=== PATIENT | female | born 1985 | race Caucasian/White ===

== ENCOUNTER 2016-07-10 18:14 | Emergency (ER) | payer SELFPAY ==
--- NOTE | ~2016-07-10 | CT2 ---
[facility] A Service of [facility] RADIOLOGY TEXT RESULTS PATIENT: RACHEL ALVAREZ LOCATION: SED : 89 UNIT #: [id number] AGE: [address]: JUAN QUINN SEX: F ORDER DR: [id number] [address] [id number] [id number] E MR#: [id number] Acc #: [id number] NAME: RACHEL ALVAREZ. : 1985 SEX: F STUDY DATE/TIME: 07/10/2016 20:18 UNIT: SED ROOM: STUDY DESCRIPTION: CT Abd and Pelv W Cont Attending Physician: Juan Quinn Ordering Physician: Physician Non-Staff Primary Care Physician: Primary Care Physician No MEDICAL IMAGING REPORT This report is preliminary unless electronic signature is present. EXAM CT scan of the abdomen and pelvis with contrast 07/10/2016 HISTORY Abdomen pain for 1 week with nausea, vomiting and diarrhea. TECHNIQUE Spiral CT was performed through the abdomen and pelvis following intravenous contrast administration only as per clinician request. This CT examination was performed with one or more of the following radiation dose reduction techniques: automatic exposure control, adjustment of mA and/or kV according to patient size, and iterative reconstruction. FINDINGS ABDOMEN: The exam is limited by the lack of oral contrast. The liver demonstrates a 5 mm hypodense lesion in the inferior right hepatic lobe with some peripheral enhancement. It may represent a small hemangioma. A similar low-density lesion measuring 8 mm is seen in the posterior right hepatic lobe. The findings could be better evaluated with either CT scan of the liver with contrast using hemangioma protocol or liver MRI with gadolinium on a non emergent basis. The spleen, pancreas, gallbladder and biliary tree, adrenal glands and kidneys are normal. PELVIS: The gut, mesenteric and dylan structures are normal. There is a 4.8 cm x 4 cm cystic lesion extending off the left ovary. This would be better evaluated with pelvic ultrasound. There is no free fluid in the pelvis. The lung bases are normal. IMPRESSION 1. Exam is limited by the lack of oral contrast. 2. Two indeterminate low-density lesions located in the right hepatic lobe. Consider characterization of these findings with either CT scan [facility] A Service of [facility] RADIOLOGY TEXT RESULTS PATIENT: RACHEL ALVAREZ LOCATION: SED : 89 UNIT #: [id number] AGE: [address]: JUAN QUINN SEX: F ORDER DR: of the liver with contrast using hemangioma protocol or liver MRI with gadolinium on a non emergent basis. 3. 4.8 cm cystic lesion in the left adnexa. Recommend correlation with transabdominal and transvaginal pelvic ultrasound for characterization of this finding. Dictated by... Jose Alejandro Alcantara M.D. THIS IS AN ELECTRONICALLY VERIFIED REPORT Jose Alejandro Alcantara M.D. at 07/11/2016 10:42 AM DO/sue TD: 07/11/2016 07:04 JOB #: [id number] MEDICAL IMAGING REPORT Page 1 of 1
[~2016-07-10 18:14] MED LIST: ALBUTEROL17 G1 IH; AMOXICILLIN PO; BACITRACIN30 GM TOP; BACTRIM DS TABL1 TAB PO; BACTROBAN15 GM TOP; CAVAN-FOLATE D1 EACH PO; DICLOFENAC PO; DIFLUCAN PO; ELIMITE60 GM TOP; FLEXERIL PO; GENOPTIC5 ML OP; IBUPROFEN PO; KEFLEX PO; KEFLEX500 MG PO; KETOPROFEN PO; LOMOTIL TABLET1 TAB PO; LORTAB 5/500 TA1 TA1 PO; MACROBID 100 M100 MG PO; NO MEDICATIONS; PERMETHRIN60 GM TOP; PHENERGAN PR; PHENERGAN25 MG PO; PREDNISONE PO; PRENATAL1 TA1; PRENATAL1 TA1 PO; ROBITUSSIN A-C S5 ML PO; SILVADENE TOP; TYLOX 5/500 CAP1 CAP PO; ULTRAM PO; VIBRAMYCIN100 M1 PO; VICODIN 5/500 T1 TAB PO; VICODIN PO; VOLTAREN50 MG PO; ZOFRANODT PO
[2016-07-10 19:01] LABS: BASOPHIL% 0.2 % (0-2.5); EOSINOPHIL# 0.1 X10e3 (0-0.7); EOSINOPHIL% 0.7 % (0.0-7.0); LYMPHOCYTE# 1.2 X10e3 (1.0-3.5); LYMPHOCYTE% 13.3 % (17.0-45.0); MEAN CELL VOLUME 88.7 FL (83-96); MEAN CORPUSCULAR HEMOGLOBIN 29.6 PG (28-34); MEAN CORPUSCULAR HGB CONC 33.4 g/dL (30-36); MONOCYTE# 0.5 X10e3 (0-1.0); MONOCYTE% 5.3 % (3.0-12.0); NEUTROPHIL# 7.2 X10e3 (1.5-7.1); NEUTROPHIL% 80.5 % (40-75); PLATELET COUNT 210 X10e3 (140-420); RED BLOOD COUNT 5.07 X10e (3.90-5.30); RED CELL DISTRIBUTION WIDTH 13.8 % (11.0-15.5); WHITE BLOOD COUNT 8.9 X10e3 (4.0-10.5)
[2016-07-10 19:03] LABS: DIFF IND NO
[2016-07-10 19:07] LABS: URINE SOURCE CLEAN CATCH
[2016-07-10 19:13] LABS: URINE APPEARANCE CLEAR; URINE BILIRUBIN NEG (NEG); URINE BLOOD NEG (NEG); URINE COLOR YELLOW; URINE GLUCOSE NEG (NORM); URINE KETONE NEG (NEG); URINE LEUKOCYTE ESTERASE NEG (NEG); URINE NITRATE NEG (NEG); URINE PH 7.5 (5-8); URINE PROTEIN NEG (NEG); URINE SPECIFIC GRAVITY <=1.005 (1.003-1.035); URINE UROBILINOGEN 0.2 MG/DL (NORM)
[2016-07-10 19:15] LABS: MICRO INDICATED? NO
[2016-07-10 19:27] LABS: ALBUMIN SERUM 4.2 g/dL (3.5-5.0); BILIRUBIN, DIRECT 0.5 mg/dL (0.0-0.2); BILIRUBIN,INDIRECT 0.5 mg/dL (0.0-0.9); BUN/CREATININE RATIO 11.66; CALCIUM SERUM 9.4 mg/dL (8.4-10.2); CREATININE SERUM 0.6 mg/dL (0.6-1.4); POTASSIUM 3.7 mmol/L (3.5-5.1); PROTEIN TOTAL SERUM 7.4 g/dL (6.0-8.3)
== END 2016-07-10 21:39 | disposition home or self-care (01) ==
LOC: SED 18:14
PROVIDERS: Physician Assistant
DX: R10.13 Epigastric pain (principal); R10.11 Right upper quadrant pain; R11.2 Nausea with vomiting, unspecified; R79.89 Other specified abnormal findings of blood chemistry; F17.200 Nicotine dependence, unspecified, uncomplicated; Z88.2 Allergy status to sulfonamides; Z91.040 Latex allergy status
CPT/HCPCS: 36415; 74177; 80048; 80076; 81003; 82150; 83690; 84703; 85025; 96361; 96374; 99284; J2405; Q9967